=== PATIENT | female | born 1960 | race Caucasian/White ===

== ENCOUNTER 2023-04-30 18:52 | Emergency (ER) | payer OTHER ==
[2023-04-30 19:22] LABS: BASOPHILS ABSOLUTE AUTO 0.03 K/mm3 (0.01-0.08); BASOPHILS PERCENT AUTO 0.4 % (0.1-1.2); EOSINOPHILS ABSOLUTE AUTO 0.17 K/mm3 (0.04-0.36); EOSINOPHILS PERCENT AUTO 2.3 (0.7-5.8); HEMATOCRIT 43.2 % (34.1-44.9); HEMOGLOBIN 14.3 gm/dl (11.2-15.7); IMMATURE GRAN ABSOLUTE AUTO 0.01 K/mm3 (0.00-0.10); IMMATURE GRAN PERCENT AUTO 0.1 % (<=1.0); LYMPHOCYTES ABSOLUTE AUTO 1.85 K/mm3 (1.18-3.74); LYMPHOCYTES PERCENT AUTO 24.9 % (19.3-51.7); MEAN CORPUSCULAR HEMOGLOBIN 29.9 pg (25.6-32.2); MEAN CORPUSCULAR HGB CONC 33.1 g/dl (32.2-35.5); MEAN CORPUSCULAR VOLUME 90.4 fl (79.4-94.8); MEAN PLATELET VOLUME 9.2 fl (9.4-12.3); MONOCYTES ABSOLUTE AUTO 0.47 K/mm3 (0.24-0.36); MONOCYTES PERCENT AUTO 6.3 % (4.7-12.5); NEUTROPHILS ABSOLUTE AUTO 4.91 K/mm3 (1.56-6.13); PLATELET COUNT,PLT 261 K/mm3 (182-369); RED BLOOD CELL COUNT 4.78 M/mm3 (3.98-5.22); WHITE BLOOD CELL COUNT,WBC 7.44 K/mm3 (3.98-10.04)
[2023-04-30] MEDS ORDERED: Ondansetron 4 MG/2 ML SDV ONE ×2 (19:32→19:35)
[2023-04-30] MEDS ORDERED: Morphine 4 MG/ML Syringe ONE (19:33)
[2023-04-30 19:41] LABS: A/G RATIO 1.2 (1-2); ALANINE AMINOTRANSFERASE,ALT 58 U/L (14-59); ALBUMIN 4.2 g/dl (3.4-5.0); ALKALINE PHOSPHATASE 67 U/L (46-116); ANION GAP 13.2 (5-15); ASPARTATE AMNIOTRANSFERASE,AST 27 U/L (15-37); BILIRUBIN TOTAL 0.2 mg/dL (0.2-1.0); BLOOD UREA NITROGEN,BUN 14 mg/dL (7-18); CALCIUM 9.3 mg/dL (8.5-10.1); CARBON DIOXIDE,CO2 27 mEq/L (21-32); CHLORIDE,CL 104 mEq/L (98-107); ESTIMATED GFR 64 mL/min (>60); GLUCOSE RANDOM 105 mg/dL (70-99); POTASSIUM,K 4.2 mEq/L (3.5-5.1); PROTEIN TOTAL,TP 7.7 g/dl (6.4-8.2); SODIUM,NA 140 mEq/L (136-145)
[2023-04-30] MEDS ORDERED: Morphine 4 MG/ML Syringe IVPUSH ONE (19:41)
[2023-04-30] MEDS ORDERED: Ondansetron 4 MG/2 ML SDV IVPUSH ONE (19:41)
[2023-04-30] MEDS ORDERED: fentaNYL 100 MCG/2 ML SDV IVPUSH ONE (20:34)
[2023-04-30] MEDS ORDERED: Metoclopramide 10 MG/2 ML SDV IVPUSH ONE (20:34)
[2023-04-30] MEDS ORDERED: Naloxone 0.4 MG/ML SDV IVPUSH PRN (20:34)
[2023-04-30] MEDS ORDERED: Metoclopramide 10 MG/2 ML SDV ONE (20:35)
[2023-04-30] MEDS ORDERED: Iopamidol 612 MG/ML 100 ML Bottle IVPUSH ONE (20:41)
== END 2023-04-30 22:30 | disposition home or self-care (01) ==
LOC: JD.ED 18:52
DX: S42.032A Displaced fracture of lateral end of left clavicle, initial encounter for closed fracture (principal); Z88.0 Allergy status to penicillin; Z88.2 Allergy status to sulfonamides; V80.010A Animal-rider injured by fall from or being thrown from horse in noncollision accident, initial encounter; Y93.52 Activity, horseback riding
CPT/HCPCS: 36415; 70450; 71260; 72125; 74177; 80053; 85025; 96374; 96375; 99284; J2270; J2405; J2765; J3010; Q9967